=== PATIENT | female | born 1985 | race Caucasian/White ===

== ENCOUNTER 2018-08-02 04:25 | Emergency (ER) | payer SELFPAY ==
[~2018-08-02] VITALS: Ht 170.2 cm; Wt 83.9 kg
[2018-08-02 04:30] VITALS: Ht 170.2 cm; Wt 83.9 kg
[2018-08-02 05:55] VITALS: BP 132/78
== END 2018-08-02 05:56 | disposition home or self-care (01) ==
LOC: ED 04:25
DX: F41.9 Anxiety disorder, unspecified (principal); R06.4 Hyperventilation; R10.13 Epigastric pain
CPT/HCPCS: J2060